=== PATIENT | female | born 1980 | race American Indian/Alaskan Native ===

== ENCOUNTER 2017-12-21 14:35 | Outpatient (CLI) | payer OTHER ==
--- NOTE | 2017-12-21 15:37 | XRay Report ---
LUMBOSACRAL SPINE, 3 VIEWS: History: Back pain Findings: The vertebral bodies, disk spaces and posterior elements are intact. No compression deformity or malalignment. The SI joints are symmetric and unremarkable. Impression: Lumbar spine within normal limits.
--- NOTE | 2017-12-21 16:07 | XRay Report ---
Cervical spine 3 views: History: Low back pain. Findings: Normal height of vertebral bodies. Normal height of intervertebral disc spaces. Normal articular surfaces. Normal prevertebral soft tissue. No fracture. Impression: No definite bony or articular abnormality cervical spine. Mild cervical spondylolisthesis cannot be entirely excluded.
== END 2017-12-21 14:36 | disposition home or self-care (01) ==
LOC: XRAY 14:35
PROVIDERS: ATTEND Internal Medicine
DX: M43.12 Spondylolisthesis, cervical region (principal); M54.5 Low back pain; F90.9 Attention-deficit hyperactivity disorder, unspecified type; F81.9 Developmental disorder of scholastic skills, unspecified
CPT/HCPCS: 72040; 72100